=== PATIENT | female | born 1975 | race Asian ===

== ENCOUNTER → 2021-04-12 | Outpatient (CLI) | payer BC ==
--- NOTE | 2021-04-12 16:29 | RAD ---
EXAM: Pelvic sonogram. HISTORY: Metrorrhagia. TECHNIQUE: Transabdominal and transvaginal sonographic imaging of the pelvis was performed. COMPARISON: None. FINDINGS: The uterus measures 11.6 x 5.9 x 4.1 cm. The individual stripe measures 7 mm in thickness.. The right ovary is normal in size and demonstrate normal blood flow. There is a 3.6 cm simple appear ing right ovarian cyst. There is a elongated cystic or tubular lesion within the left adnexa measurin g 5.8 cm, difficult to assess due to ovarian location. The left ovary is not seen separate from this lesion. There is no pelvic free fluid. IMPRESSION: 1. 5.8 cm elongated cystic or tubular lesion within the left adnexa, possibly an ovarian or paraovari an cyst or hydrosalpinx. The left ovary is not seen separate from this structure. 2. 3.6 cm simple appearing right ovarian cyst. Electronically signed by: Sheron Lemus MD (04/12/2021 4:26 PM) [id number]
== END ==
LOC: US 15:33
PROVIDERS: ATTEND Family Medicine
DX: N92.1 Excessive and frequent menstruation with irregular cycle (principal)
CPT/HCPCS: 76830; 76856